=== PATIENT | female | born 1980 | race Caucasian/White ===

== ENCOUNTER 2017-07-06 18:19 | Emergency (ER) | payer MEDICARE, SELFPAY ==
[2017-07-06 18:20] VITALS: BP 155/98; PULSE 99; RESP 16; TEMP 36.4; O2SAT 100; BMI 49.4
--- NOTE | 2017-07-06 18:31 | ED.RN ---
pt telling me that her major problem is chest pain she telling me she is not having right now, had earlier but she fell asleep. describes the pain as drowning and suffocating but denies shortness of breath. pt goes off topic and brings up numbness and tingling in legs, hands, and her eyes are being pulled out of her head.
--- NOTE | 2017-07-06 18:38 | EKG12_ITS ---
Test Reason : SOB Blood Pressure : / mmHG Vent. Rate : 099 BPM Atrial Rate : 099 BPM P-R Int : 144 ms QRS Dur : 074 ms QT Int : 366 ms P-R-T Axes : 072 004 046 degrees QTc Int : 469 ms Normal sinus rhythm Normal ECG Confirmed by ONESIMO ALVAREZ, TORITO ([id number]), editorial writer VINCE MANCUSO ([id number]) on 07/09/2017 1:46:22 PM Referred By: FLORA Confirmed By:TORITO ECHOLS MD
--- NOTE | 2017-07-06 18:38 | CT_ITS ---
STUDY: CT BRAIN WITHOUT CONTRAST REASON FOR EXAM: Female, 37 years old. Dizziness. RADIATION DOSAGE (If Supplied By Facility): CTDIvol = ( 44.99 ) mGy, DLP = ( 812.98 ) mGycm TECHNIQUE: Transaxial CT imaging of the brain was performed without administration of intravenous contrast material. Individualized dose optimization techniques were used for this CT. COMPARISON: None. FINDINGS: Normal soft tissue structures. Normal calvarium. Normal size ventricles and extra-axial spaces for the patient's age. Normal white matter tracts of the cerebral hemispheres. Normal basal ganglia and thalami. Normal brainstem. Normal cerebellum. There is no intracranial hemorrhage. There are no findings of an acute ischemic infarction. There is mild opacification of the maxillary, sphenoid and ethmoid sinuses. CT/Brain/Head without Contrast IMPRESSION: No acute intracranial process. Mild opacification of the maxillary and sphenoid and ethmoid sinuses suggestive of a history of sinusitis. Electronically Signed: Yola Trinh MD at 19:51 EST Tel , Service support ,
--- NOTE | 2017-07-06 18:42 | ED.DCSUM_ITS ---
- ER Visit Summary Date of Service: 07/06/17 Chief Complaint: Chest pain and body pain History of Present Illness: The patient is a 37 F with history of anxiety and bipolar disorder who presents for 6 hours of chest pain and multiple body pain complaints. Patient states she began having sharp severe chest pain, sharp pain in her arms and legs that would alternate with numbness, vision changes that were intermittent, and now feels like someone is trying to pull her right eye out of her head. She took a muscle relaxant and BuSpar and took a nap. When she woke up she came to the emergency department because she was still having symptoms. She denies cough or congestion. She had associated shortness of breath. No fever. Patient states she is currently not taking her medications but cannot tell me when the last time she took them was. Physical Examination: Vital signs: afebrile, hemodynamically stable, no hypoxia on room air General: well nourished, well developed, obese, laying in bed, in no distress Skin: warm, dry, no rash, no pallor no contusions noted HEENT: normocephalic and atraumatic; PERRL, EOMI, moist mucous membranes mild conjunctival injection diffusely Cardiovascular: regular rate and rhythm without murmurs, no peripheral edema, 2 + pulses all distal extremities Respiratory: No increased work of breathing, lungs are clear to auscultation bilaterally, no rales, rhonchi or wheezing Abdominal: Abdomen is soft, nontender with normoactive bowel sounds, no guarding or rebound, no masses MSK: Moves all extremities, no deformities, normal strength, complaint of pain to very light touch all extremities Neuro: Awake and alert, oriented ?4. No facial droop, sensation and motor function intact and symmetric Test Results: Abnormal Lab Results 07/06/17 07/06/17 07/06/17 18:50 18:50 18:50 WBC 9.0 RBC 4.31 Hgb 11.9 L Hct 37.4 MCV 86.8 MCH 27.6 MCHC 31.8 L RDW 14.1 RDW Differential 44.6 H Plt Count 112 L MPV 10.2 Immature Gran % (Auto) 0.300 Neut % (Auto) 60.3 Lymph % (Auto) 30.5 Lipscomb % (Auto) 3.2 Eos % (Auto) 5.3 H Baso % (Auto) 0.4 Absolute Neuts (auto) 5.4 Absolute Lymphs (auto) 2.75 Total Counted Not Reportable Sodium 142 Potassium 3.2 L Chloride 108 H Carbon Dioxide 26.0 Anion Gap 8 BUN 14 Creatinine 0.67 Estim Creat Clear Calc 90.04 Est GFR (MDRD) Af Amer 127 Est GFR (MDRD) Non-Af 105 BUN/Creatinine Ratio 21.0 H Glucose 164 H Calcium 7.8 L Total Bilirubin 0.40 AST 28 ALT 33 Alkaline Phosphatase 103 Total Creatine Kinase Troponin I < 0.02 Total Protein 6.6 Albumin 3.1 L Globulin 3.5 Albumin/Globulin Ratio 0.9 Lipase 138 TSH 0.56 Urine Color Urine Clarity Urine pH Ur Specific Mcdaniel Urine Protein Urine Glucose (UA) Urine Ketones Urine Occult Blood Urine Nitrite Urine Bilirubin Urine Urobilinogen Ur Leukocyte Esterase Urine Test Urine Opiates Screen Urine Methadone Screen Ur Barbiturates Screen Ur Phencyclidine Scrn Ur Amphetamines Screen U Methamphetamin-MDMA U Benzodiazepines Scrn Urine Cocaine Screen U Cannabinoids Screen Ur Drug Screen Comment Ethyl Alcohol 9.0 POC Glucose 07/06/17 07/06/17 07/06/17 18:50 19:10 19:50 WBC RBC Hgb Hct MCV MCH MCHC RDW RDW Differential Plt Count MPV Immature Gran % (Auto) Neut % (Auto) Lymph % (Auto) Lipscomb % (Auto) Eos % (Auto) Baso % (Auto) Absolute Neuts (auto) Absolute Lymphs (auto) Total Counted Sodium Potassium Chloride Carbon Dioxide Anion Gap BUN Creatinine Estim Creat Clear Calc Est GFR (MDRD) Af Amer Est GFR (MDRD) Non-Af BUN/Creatinine Ratio Glucose Calcium Total Bilirubin AST ALT Alkaline Phosphatase Total Creatine Kinase 271 H Troponin I Total Protein Albumin Globulin Albumin/Globulin Ratio Lipase TSH Urine Color Urine Clarity Urine pH Ur Specific Mcdaniel Urine Protein Urine Glucose (UA) Urine Ketones Urine Occult Blood Urine Nitrite Urine Bilirubin Urine Urobilinogen Ur Leukocyte Esterase Urine Test Urine Opiates Screen NEGATIVE Urine Methadone Screen NEGATIVE Ur Barbiturates Screen NEGATIVE Ur Phencyclidine Scrn NEGATIVE Ur Amphetamines Screen POSITIVE H U Methamphetamin-MDMA POSITIVE H U Benzodiazepines Scrn NEGATIVE Urine Cocaine Screen NEGATIVE U Cannabinoids Screen POSITIVE H Ur Drug Screen Comment Ethyl Alcohol POC Glucose 166 H 07/06/17 19:50 WBC RBC Hgb Hct MCV MCH MCHC RDW RDW Differential Plt Count MPV Immature Gran % (Auto) Neut % (Auto) Lymph % (Auto) Lipscomb % (Auto) Eos % (Auto) Baso % (Auto) Absolute Neuts (auto) Absolute Lymphs (auto) Total Counted Sodium Potassium Chloride Carbon Dioxide Anion Gap BUN Creatinine Estim Creat Clear Calc Est GFR (MDRD) Af Amer Est GFR (MDRD) Non-Af BUN/Creatinine Ratio Glucose Calcium Total Bilirubin AST ALT Alkaline Phosphatase Total Creatine Kinase Troponin I Total Protein Albumin Globulin Albumin/Globulin Ratio Lipase TSH Urine Color Yellow Urine Clarity Sl. Cloudy Urine pH 6.0 Ur Specific Mcdaniel 1.025 Urine Protein Negative Urine Glucose (UA) Normal Urine Ketones Negative Urine Occult Blood 10 H Urine Nitrite Negative Urine Bilirubin Negative Urine Urobilinogen Normal Ur Leukocyte Esterase Negative Urine Test Negative Urine Opiates Screen Urine Methadone Screen Ur Barbiturates Screen Ur Phencyclidine Scrn Ur Amphetamines Screen U Methamphetamin-MDMA U Benzodiazepines Scrn Urine Cocaine Screen U Cannabinoids Screen Ur Drug Screen Comment Ethyl Alcohol POC Glucose Emergency Department Course and Treatment: Patient has multiple complaints that do not have a unified obvious etiology. Thus a workup was performed to look for underlying metabolic or neurologic issues. CT the head showed no mass lesions or intracranial hemorrhage. Chest x-ray showed no pneumonia. EKG showed a sinus rhythm without ischemia or ectopy, no prolonged QT interval. Labs showed no leukocytosis. No significant electrolyte derangements on chemistry panel other than very mild hypokalemia. No hepatic derangements. Troponin negative. Because of patient's diffuse muscle tenderness his CK was checked and was within acceptable limits. TSH was within normal limits. Tox screen negative and alcohol was within normal limits. Patient was given Tylenol and IV fluids. On reevaluation she was moving around and interacting with her boyfriend. She was no longer complaining of any pain. She then stated that maybe it was a fibro-flare in the beginning but with her diffuse tenderness to touch all over her body makes sense with the fibromyalgia diagnosis. Patient will follow up with her doctor. She was discharged home in improved condition. Treatment Plan: [] Disposition: [] Impression: generalized pain This note was generated with Relevant e-solutionation software. It may contain incorrect words, spelling, and punctuation that were not noted in review of the chart prior to signing ED Disposition - Plan for ED Patient: Disposition: Home or Assisted Living Chief Complaint: General Illness Instructions: ED Blank Diagnosis Form Referrals: Beto Barahona DO [Primary Care Provider] - Keep [facility] appointment Additional Instructions: A workup was performed for your chest pain and multiple pain points in your extremities. Because you were also having the numbness and vague vision changes , a CT of your head was performed and showed no abnormalities. Your lab work showed no electrolyte imbalance, and no other abnormalities. Your thyroid function was normal. Your given Tylenol and IV fluids. Please follow-up with your doctor as scheduled on . If you have any further concerns, please come back for another evaluation.
[2017-07-06] MEDS: 0.9% Normal Saline 1,000 ML 1000 ML IV (19:03)
[2017-07-06] MEDS: Acetaminophen 500 MG Tablet 1000 MG PO (19:03)
[2017-07-06 19:05] LABS: Absolute Lymphocyte Count 2.75 X10^3/ul (0.83-4.51); Absolute Neutrophil Count 5.4 X10^3/uL (2.0-7.7); Basophil# 0.04 X10^3/uL; Basophil% 0.4 % (0-1); Eosinophil# 0.48 X10^3/uL; Eosinophils% 5.3 % (0-5); Hematocrit 37.4 % (37-47); Hemoglobin 11.9 g/dl (12.0-15.0); Lymphocyte # 2.75 X10^3/ul (4.0); Lymphocyte % 30.5 % (19-41); Mean Corp Hgb Conc 31.8 g/gl (32-36); Mean Corpuscular Hgb 27.6 pg (27.0-32.0); Mean Corpuscular Volume 86.8 fL (81-99); Mean Platelet Vol. 10.2 fl (6.2-12.0); Monocyte# 0.29 X10^3/uL; Monocyte% 3.2 % (0-10); Neutrophil # 5.44 X10^3/uL (2.7-7.7); Neutrophil % 60.3 % (47-70); Platelet Count 112 K/mm3 (150-450); RBC Distribution Width CV 14.1 % (11.6-14.6); RBC Distribution Width SD 44.6 fl (35.1-43.9); Red Blood Count 4.31 M/mm3 (4.2-5.4)
--- NOTE | 2017-07-06 19:14 | ED.RN ---
PT NOT TAKING MEDS. UNABLE TO VERIFY HOME MEDS
[2017-07-06 19:15] LABS: Bedside Glucose 166 mg/dL (70-110)
[2017-07-06 19:18] LABS: POSITIVE COUNT NO; POSITIVE DIFFERENTIAL NO; POSITIVE MORPHOLOGY NO
[2017-07-06 19:25] LABS: CPK Total, Creatine Kinase 271 U/L (26-192)
--- NOTE | 2017-07-06 19:25 | RAD_ITS ---
STUDY: X-RAY CHEST REASON FOR EXAM: Female, 37 years old. Chest pain TECHNIQUE: PA and lateral views of the chest. COMPARISON: August 14, 2015 FINDINGS: The lungs are clear and expanded. There is no demonstrated pleural abnormality. Normal size heart. Normal mediastinum and sd. Normal visualized pulmonary arteries. Normal visualized aortic arch and descending thoracic aorta. Normal visualized thoracic spine. Normal visualized ribs, clavicles, and shoulders. There is no demonstrated abnormality of the visualized soft tissue structures of the upper abdomen. RAD/Chest PA and Lateral IMPRESSION: No acute cardiopulmonary process. Electronically Signed: Yola Trinh MD at 19:54 EST Tel , Service support ,
[2017-07-06 19:34] LABS: ALB/GLOB Ratio 0.9 RATIO (0.9-2.4); AST(SGOT) 28 U/L (15-37); Alanine Aminotransfer ALT/SGPT 33 U/L (13-56); Albumin, Serum 3.1 g/dL (3.2-5.0); Alkaline Phosphatase 103 U/L (45-117); Anion Gap 8 (5-15); BUN 14 mg/dL (7-18); Calcium,Total 7.8 mg/dL (8.5-10.1); Chloride 108 mmol/L (98-107); Creatinine, Serum 0.67 mg/dL (0.55-1.02); EST Glomerular Filtration Rate 105 mL/min (>60); Est Glom Filt Rate - Afr Amer 127 mL/min (>60); Estimated Creatinine Clearance 90.04 ml/min; Globulin 3.5 g/dL (2.2-4.2); Glucose 164 mg/dL (74-106); Lipase 138 U/L (73-393); Potassium 3.2 mmol/L (3.5-5.1); Protein, Total 6.6 g/dL (6.4-8.2); Sodium Level 142 mmol/L (136-145); Thyroid Stim Hormone (TSH) 0.56 uIU/mL (0.358-3.74)
[2017-07-06 20:00] LABS: Color, Urine Yellow (Yellow); Glucose, Dipstick Normal (Normal); Ketone-Dipstick Negative (Negative); Leukocyte Esterase-Dipstick Negative /ul (Negative); Nitrite-Dipstick Negative (Negative); Occult Blood-Urine 10 /ul (Negative); Protein-Dipstick Negative (Negative); Specific Gravity, Urine 1.025 (1.002-1.030); Urine Bilirubin Dipstick Negative (Negative); Urine Clarity Sl. Cloudy (Clear); Urine Urobilinogen Normal (Normal)
[2017-07-06 20:03] LABS: Internal QC Validated? YES +Cl - CLEAR BKGD; Pregnancy, Urine Negative Negative
[2017-07-06 20:07] VITALS: BP 159/101; RESP 18
--- NOTE | 2017-07-06 20:10 | DCINST.ED_ITS ---
ED Disposition - Plan for ED Patient: Disposition: Home or Assisted Living Chief Complaint: General Illness Instructions: ED Blank Diagnosis Form Referrals: Beto Barahona DO [Primary Care Provider] - Keep [facility] appointment Additional Instructions: A workup was performed for your chest pain and multiple pain points in your extremities. Because you were also having the numbness and vague vision changes , a CT of your head was performed and showed no abnormalities. Your lab work showed no electrolyte imbalance, and no other abnormalities. Your thyroid function was normal. Your given Tylenol and IV fluids. Please follow-up with your doctor as scheduled on . If you have any further concerns, please come back for another evaluation.
[2017-07-06 20:25] LABS: Amphetamine Urine VISTA POSITIVE (<1000 ng/mL); Barbiturate Urine VISTA NEGATIVE (< 200 ng/mL); Benzodiazepine Urine VISTA NEGATIVE (< 200 ng/mL); Cocaine Urine VISTA NEGATIVE (< 300 ng/mL); Ecstacy Urine VISTA POSITIVE (< 500 ng/mL); Methadone Urine VISTA NEGATIVE (< 300 ng/mL); PCP Urine VISTA NEGATIVE (< 25 ng/mL); THC Urine VISTA POSITIVE (< 50 ng/mL); Vista UDS pH Range 5
== END 2017-07-06 20:22 | disposition home or self-care (01) ==
PROVIDERS: Emergency Provider Emergency Medicine; Family Provider Student in an Organized Health Care Education/Training Program; PCP Student in an Organized Health Care Education/Training Program
DX: R07.9 Chest pain, unspecified (principal); R52 Pain, unspecified; E87.6 Hypokalemia; E66.9 Obesity, unspecified; F41.9 Anxiety disorder, unspecified; F31.9 Bipolar disorder, unspecified; Z79.899 Other long term (current) drug therapy
CPT/HCPCS: 70450; 71046; 80053; 80307; 80320; 81002; 81025; 82550; 82962; 83690; 84443; 84484; 85025; 93005; 96360; 99284; J7030; A4216; G0480

== ENCOUNTER 2017-08-30 15:34 | Emergency (ER) | payer MEDICARE, SELFPAY ==
[2017-08-30 15:40] VITALS: BP 165/116; PULSE 128; RESP 20; TEMP 36.9; O2SAT 94; BMI 40.2
--- NOTE | 2017-08-30 15:48 | ED.RN ---
0501-Pocket knife sent to security with patient label. Patient refusing to give up other belongings, including multiple lighters, at this time. Lighters handed to piano case maker who is sitting next to patient. Primary RN and ED physician Dr. Hatfield at bedside at this time.
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
[2017-08-30] MEDS: LORazepam 1 MG Tablet PO (16:23)
[2017-08-30 16:27] LABS: Absolute Lymphocyte Count 3.77 X10^3/ul (0.83-4.51); Absolute Neutrophil Count 8.4 X10^3/uL (2.0-7.7); Basophil# 0.07 X10^3/uL; Basophil% 0.5 % (0-1); Eosinophil# 0.63 X10^3/uL; Eosinophils% 4.6 % (0-5); Hematocrit 42.3 % (37-47); Lymphocyte # 3.77 X10^3/ul (4.0); Lymphocyte % 27.4 % (19-41); Mean Corp Hgb Conc 33.1 g/gl (32-36); Mean Corpuscular Hgb 28.2 pg (27.0-32.0); Mean Corpuscular Volume 85.3 fL (81-99); Mean Platelet Vol. 10.3 fl (6.2-12.0); Monocyte% 5.8 % (0-10); Neutrophil # 8.38 X10^3/uL (2.7-7.7); Platelet Count 175 K/mm3 (150-450); RBC Distribution Width CV 13.8 % (11.6-14.6); RBC Distribution Width SD 42.3 fl (35.1-43.9); Red Blood Count 4.96 M/mm3 (4.2-5.4); White Blood Count 13.7 K/mm3 (4.4-11.0)
[2017-08-30 16:28] LABS: POSITIVE COUNT NO; POSITIVE DIFFERENTIAL NO; POSITIVE MORPHOLOGY NO
[2017-08-30 16:39] LABS: Anion Gap 7 (5-15); BUN 19 mg/dL (7-18); Calcium,Total 8.9 mg/dL (8.5-10.1); Chloride 103 mmol/L (98-107); Creatinine, Serum 0.76 mg/dL (0.55-1.02); EST Glomerular Filtration Rate 91 mL/min (>60); Est Glom Filt Rate - Afr Amer 110 mL/min (>60); Estimated Creatinine Clearance 79.38 ml/min; Glucose 173 mg/dL (74-106); Potassium 3.8 mmol/L (3.5-5.1); Sodium Level 138 mmol/L (136-145)
[2017-08-30 16:45] LABS: Amphetamine Urine VISTA POSITIVE (<1000 ng/mL); Barbiturate Urine VISTA NEGATIVE (< 200 ng/mL); Benzodiazepine Urine VISTA NEGATIVE (< 200 ng/mL); Cocaine Urine VISTA NEGATIVE (< 300 ng/mL); Ecstacy Urine VISTA POSITIVE (< 500 ng/mL); Methadone Urine VISTA NEGATIVE (< 300 ng/mL); PCP Urine VISTA NEGATIVE (< 25 ng/mL); THC Urine VISTA NEGATIVE (< 50 ng/mL); Vista UDS pH Range 6
[2017-08-30 16:54] LABS: Pregnancy, Serum, hCG Quali. NEGATIVE Negative (0-9 Nonpreg)
[2017-08-30 17:05] LABS: Alcohol, Blood (Medical)-Serum < 3.0 mg/dL
--- NOTE | 2017-08-30 17:14 | ED.RN ---
PER KIERA WITH CRISIS; BINU WILL BE IN TO EVALUATE THE PT. SHE IS ON HER WAY BACK FROM [facility]
[2017-08-30 18:21] VITALS: BP 152/94; PULSE 106; RESP 18; O2SAT 99
[2017-08-30] MEDS: Ibuprofen 600 MG Tablet PO (21:10)
[2017-08-30 21:11] VITALS: BP 150/97; PULSE 100; RESP 20; O2SAT 97
[2017-08-31 00:08] VITALS: BP 147/83; PULSE 91; RESP 20; O2SAT 96
== END 2017-08-31 00:09 | disposition home or self-care (01) ==
PROVIDERS: Emergency Provider Emergency Medicine; Family Provider Student in an Organized Health Care Education/Training Program; PCP Student in an Organized Health Care Education/Training Program
DX: F30.9 Manic episode, unspecified (principal); F60.0 Paranoid personality disorder; Z72.0 Tobacco use; Z79.51 Long term (current) use of inhaled steroids; Z79.84 Long term (current) use of oral hypoglycemic drugs; Z79.899 Other long term (current) drug therapy
CPT/HCPCS: 80048; 80307; 80320; 84703; 85025; 99285; G0480

== ENCOUNTER 2018-08-23 15:45 | Emergency (ER) | payer MEDICARE, SELFPAY ==
[2018-08-23 15:45] VITALS: BMI 49.4
[2018-08-23 15:46] VITALS: BP 181/117; PULSE 82; RESP 18; TEMP 36.6; O2SAT 95; BMI 44.9
--- NOTE | 2018-08-23 16:05 | ED.VISSUMM ---
- ER Visit Summary Date of Service: 08/23/18 Chief Complaint: Tooth pain History of Present Illness: The patient is a 38 F who has pain in the right side of her mouth. It started earlier today. She is a previous meth user and she knows that she has bad teeth. It is worse with chewing. She did not notice any of her teeth broke off today. She took ibuprofen at about 1:45 PM Physical Examination: Vital signs reviewed. She has tenderness to tooth percussion on the right hand side diffusely. She has widespread dental decay with multiple broken teeth. Test Results: None performed Emergency Department Course and Treatment: Patient will be treated with clindamycin, naproxen and Diflucan. She will follow-up with her dentist Treatment Plan: [] Disposition: Discharge Impression: Odontalgia This note was generated with [employer] dictation software. It may contain incorrect words, spelling, and punctuation that were not noted in review of the chart prior to signing ED Disposition - Plan for ED Patient: Referrals: Beto Barahona DO [Primary Care Provider] -
--- NOTE | 2018-08-23 16:08 | ED.DEP ---
ED Disposition - Plan for ED Patient: Disposition: Home or Assisted Living Instructions: ED Tooth Pain Prescriptions: Fluconazole [Diflucan] 150 mg PO PRN PRN #1 tab PRN Reason: yeast vaginitis Naproxen [Naprosyn] 500 mg PO BID PRN #20 tab Clindamycin [Cleocin] 300 mg PO TID #42 cap Referrals: Beto Barahona DO [Primary Care Provider] -
== END 2018-08-23 16:17 | disposition home or self-care (01) ==
LOC: ED 16:16
PROVIDERS: Emergency Provider Emergency Medicine; Family Provider Student in an Organized Health Care Education/Training Program; PCP Student in an Organized Health Care Education/Training Program
DX: K08.89 Other specified disorders of teeth and supporting structures (principal); M79.7 Fibromyalgia; Z72.0 Tobacco use
CPT/HCPCS: 99282

== ENCOUNTER 2020-06-08 22:38 | Emergency (ER) | payer MEDICARE, MEDICAID, SELFPAY ==
[2020-06-08 22:38] VITALS: BP 162/111; PULSE 121; RESP 18; TEMP 36.9; O2SAT 96; BMI 43.9
--- NOTE | 2020-06-08 23:04 | ED.DCSUM_ITS ---
History of Present Illness Chief Complaint: Abscess Informant: Patient Onset: Days - 4-5 Context: Gradual Onset Timing: Continuous Quality: sore Location: mult locations -- see below Current Severity: Moderate Maximum Severity: Moderate Worsened by: sitting Relieved by: nothing Associated Symptoms: chills, feeling poorly Narrative: Patient states she has had small boils off and on since she was a teenager. Never been diagnosed with hidradenitis suppurativa, but they often occur in intertriginous areas. She currently has several. She has 1 on her left labia majora, one on her right buttock near her perineum, one on her left medial thigh close to her labia but extending more distally toward the knee, one on her right proximal thigh anteriorly near her groin, and one beneath her left breast that burst and drained a scant amount of fluid and is improving which is what the majority of her small abscesses have done for the last couple decades. She has never needed one drained, and the one on her left medial thigh is the most painful and largest and she fears may be drainable. She has been having chills and feeling poorly but no fevers that she knows of, no other major systemic symptoms she has been getting around fine and not feeling very ill. She is a prediabetic, not a diabetic. - Past Medical History (1) Prediabetes Status: Chronic (2) Bipolar 1 disorder Status: Chronic (3) Fibromyalgia Status: Chronic (4) IBS (irritable bowel syndrome) Status: Chronic Past Medical History - Allergies and Home Meds Allergies/Adverse Reactions: Allergies red (food color) Allergy (Verified 06/08/20 22:41) Other MIGRAINES sulfamethoxazole [From Septra] Allergy (Verified 06/08/20 22:41) Rash trimethoprim [From Septra] Allergy (Verified 06/08/20 22:41) Rash amoxicillin [Amoxicillin] Adverse Reaction (Verified 06/08/20 22:41) Nausea/Vom/Diarrhea amoxicillin trihydrate [From Augmentin] Adverse Reaction (Verified 06/08/20 22:41) Nausea/Vom/Diarrhea potassium clavulanate [From Augmentin] Adverse Reaction (Verified 06/08/20 22:41) Nausea/Vom/Diarrhea Primary Care Physician: Beto Barahona DO [Primary Care Provider] - Surgical History: cholecystectomy, hysterectomy Smoking Status: Current every day smoker Review of Systems General: Reports: Chills, Malaise. Denies: Fever, Sweats Eyes: Denies: Visual changes - bilaterally, Diplopia ENT: Denies: Rhinorrhea, Sore throat Cardiovascular: Denies: Chest pain, Palpitations Respiratory: Denies: Dyspnea, Cough, Dyspnea on exertion Gastrointestinal: Denies: Abdominal pain, Nausea, Vomiting, Diarrhea, Melena, Hematochezia Genitourinary: Denies: Dysuria, Hematuria, Frequency Musculoskeletal: Reports: Extremity Pain - at abscess locations. Denies: Back pain Skin: Reports: Abscess. Denies: Rash, Wounds Neurological: Denies: Headache, Weakness, Numbness Physical Exam Vital Signs/Narrative: Vital Signs Temp Pulse Resp BP Pulse Ox 06/08/20 22:38 98.4 F 121 H 18 162/111 H 96 Inital Vital Signs reviewed: Yes General: Well nourished, Well developed, Obese, No Acute Distress - well- appearing, nad Head: Normocephalic, Atraumatic Eyes: Perrl, EOMI ENT: Moist mucous membranes, No rhinorrhea Neck: Supple, Nontender Cardiovascular: Regular rate, Regular rhythm. Negative for: Tachycardia Respiratory: No distress, CTA bilaterally Abdomen: Soft, Nontender, Nondistended, Normal bowel sounds Back: Nontender, Normal Inspection Extremities: No edema, Tenderness - at abscess locations bilat thighs Skin: No Trauma, Rash - Several small abscesses. The one on her left labia majora is not palpable or visible to me. The one on her right anterior thigh is subcentimeter and very small without spontaneous drainage. The one on her right buttock/perineum is also very small. , - - The abscess on her left medial thigh is about 4 cm in diameter, pointing, indurated, with cellulitis spreading approximately 10 cm distally toward the knee and the thigh which is also tender but not indurated. No spontaneous drainage expressible. Neurological: Alert, Oriented x3, Cranial nerves II-XII grossly intact, Normal Strength, Normal Sensation, Normal Gait Psychological: Normal affect, Normal Mood Diagnostic/Tx/Re-eval Laboratory Tests 06/08/20 Range/Units 23:11 WBC 9.3 (4.4-11.0) K/mm3 RBC 4.96 (4.2-5.4) M/mm3 Hgb 14.0 (12.0-15.0) g/dL Hct 42.4 (37-47) % MCV 85.5 (81-99) fL MCH 28.2 (27.0-32.0) pg MCHC 33.0 (32-36) g/dL RDW Std Deviation 43.0 (35.1-43.9) fl RDW Coeff of Jatinder 13.9 (11.6-14.6) % Plt Count 155 (150-450) K/mm3 MPV 10.7 (6.2-12.0) fl Immature Gran % (Auto) 1.800 H (0.0-0.9) % Neut % (Auto) 60.8 (47-70) % Lymph % (Auto) 26.9 (19-41) % Jennings % (Auto) 5.6 (0-10) % Eos % (Auto) 4.3 (0-5) % Baso % (Auto) 0.6 (0-1) % Absolute Neuts (auto) 5.7 (2.0-7.7) X10^3/uL Absolute Lymphs (auto) 2.50 (0.83-4.51) X10^3/uL Nucleated RBC % 0 (0-5) % - Medical Decision Making Given that the patient has allergy to the first choice empiric antibiotic therapy, Bactrim, and was having some chills with this extensive cellulitis around this abscess, CBC and blood cultures were obtained prior to starting vancomycin. Her white blood count is normal, which is reassuring and makes it less likely that her blood cultures will be positive. Abscess was drained, packed, she was given instructions for removal of the packing, and she will be placed on clindamycin which she has had before and tolerates. She is already taking a probiotic which will help prevent antibiotic associated diarrhea. All questions answered at bedside and discharged stable condition for outpatient follow-up as needed. Procedures Procedure(s): Incision and drainage abscess left medial thigh, complex --after sterile prep and drape with chlorhexidine, and local anesthesia 6 cc plain 1% lidocaine, the abscess was opened with a #10 blade, and the abscess was probed and deloculated with Kellys since due to the patient's obesity the capsule surface was deep. A smaller than expected amount of purulent discharge was expressed. The cavity was irrigated with 60 cc of sterile saline, and packed with strip gauze quarter inch. Dressed with bacitracin. No complications, tolerated well. ED Disposition - Plan for ED Patient: Disposition: Home or Assisted Living Diagnosis: Cutaneous abscess of extremity Instructions: ED Abscess Incision And Drainage Prescriptions: Clindamycin [Cleocin] 300 mg PO 4X/DAY #80 cap Prescription Printed Referrals: Beto Barahona DO [Primary Care Provider] - 3-5 Days if not improving Additional Instructions: If in approximately 48 hours the redness is retracting from where we christin a purple line at the edge of it, remove the packing, discarded, and continue placing gauze over the open wound with antibiotic ointment until there is no more leakage/drainage from the wound. Continue the antibiotics as prescribed until completely finished. Continue taking probiotic daily especially while on the antibiotic.
[2020-06-08 23:29] LABS: Absolute Neutrophil Count 5.7 X10^3/uL (2.0-7.7); Basophil# 0.06 X10^3/uL; Basophil% 0.6 % (0-1); Eosinophils% 4.3 % (0-5); Hematocrit 42.4 % (37-47); Lymphocyte % 26.9 % (19-41); Mean Corpuscular Hgb 28.2 pg (27.0-32.0); Mean Corpuscular Volume 85.5 fL (81-99); Mean Platelet Vol. 10.7 fl (6.2-12.0); Monocyte# 0.52 X10^3/uL; Monocyte% 5.6 % (0-10); NRBC Flagged by Analyzer 0 % (0-5); Neutrophil # 5.65 X10^3/uL (2.7-7.7); Neutrophil % 60.8 % (47-70); Platelet Count 155 K/mm3 (150-450); RBC Distribution Width CV 13.9 % (11.6-14.6); Red Blood Count 4.96 M/mm3 (4.2-5.4); White Blood Count 9.3 K/mm3 (4.4-11.0)
[2020-06-08 23:37] VITALS: BP 142/91; PULSE 109; RESP 16; O2SAT 97
[2020-06-09] MEDS: Lidocaine 1% (20 ml mdv) 20 ML Vial INFILT (01:44)
[2020-06-09 02:16] VITALS: BP 144/98; PULSE 109; RESP 16; O2SAT 97
== END 2020-06-09 02:17 | disposition home or self-care (01) ==
PROVIDERS: Emergency Provider Emergency Medicine; PCP Student in an Organized Health Care Education/Training Program
DX: L02.416 Cutaneous abscess of left lower limb (principal); F31.9 Bipolar disorder, unspecified; M79.7 Fibromyalgia; R73.03 Prediabetes; E66.9 Obesity, unspecified; F17.200 Nicotine dependence, unspecified, uncomplicated; Z79.899 Other long term (current) drug therapy; Z79.84 Long term (current) use of oral hypoglycemic drugs
CPT/HCPCS: 10060; 36415; 85025; 87040; 96365; 96366; 99284; J7040; J7050; A4216

== ENCOUNTER 2020-06-26 09:36 | Emergency (ER) | payer MEDICARE, MEDICAID, SELFPAY ==
[2020-06-26 09:36] VITALS: BP 204/130; PULSE 125; RESP 18; TEMP 36.6; O2SAT 100; BMI 48.4
[2020-06-26 09:46] VITALS: BP 204/130; PULSE 125; RESP 18; TEMP 36.6; O2SAT 100
--- NOTE | 2020-06-26 09:54 | CT_ITS ---
STUDY: CT ABDOMEN AND PELVIS WITH CONTRAST REASON FOR EXAM: Female, 40 years old. ABD PAIN, VAG BLEEDING SINCE 2018, DIARRHEA, ABSCESSES RADIATION DOSAGE (If Supplied By Facility): CTDIvol = ( 21.925 ) mGy, DLP = ( 1829.92 ) mGycm TECHNIQUE: Transaxial images were obtained from the dome of the diaphragm to the symphysis pubis without oral contrast. was administered. Sagittal and coronal images were reconstructed. Individualized dose optimization techniques were used for this CT. COMPARISON: Comparison is made with prior study dated 08/12/2015. FINDINGS: The visualized lung bases are unremarkable. The visualized portions of the heart are within normal limits. There is decreased attenuation of the liver consistent with steatosis. Hepatomegaly. There are surgical clips in the gallbladder fossa consistent with a prior cholecystectomy. Normal spleen. Normal pancreas. Normal bilateral adrenal glands. Normal right kidney. Normal left kidney. Normal visualized stomach. Normal small intestine. There are scattered colonic diverticula consistent with diverticulosis. The appendix is visualized and appears normal. Normal abdominal aorta. Normal inferior vena cava. Normal retroperitoneum. Normal urinary bladder. There is absence of the uterus consistent with a prior hysterectomy. Normal abdominal wall. Normal osseous structures. CT/Abdomen/Pelvis W IV Cont ONLY IMPRESSION: Hepatomegaly and diffuse fatty infiltration of the liver. Electronically Signed: Mark Hilliard MD at 11:50 EST , Service support ,
--- NOTE | 2020-06-26 09:57 | ED.VIS.GEN ---
History of Present Illness Chief Complaint: Vag Bleeding Informant: Patient Narrative: 40-year-old female presenting with multiple complaints. Initially she stated she had some skin irritation on her arms, legs, trunk which has been present for years. She states that they sometimes assess and rupture on their own. Patient was seen earlier this month and had one abscess that needed to be opened. She was placed on clindamycin. She is currently taking this. She states that that abscess was improving and now she notices a rash all over. Patient also states that this morning she started to have vaginal bleeding and she also complains of rectal cramping. Patient has not had fever, chills, nausea, vomiting. Patient does state that she is trying to make an appointment with her primary care physician however due to difficulty getting an appointment she came to the emergency room. Patient states that she has had issue of blood in her stool in the past. She has not made follow-up with a GI doctor for this. She has not contacted her GM for her vaginal bleeding. - Past Medical History (1) Prediabetes Status: Chronic (2) Bipolar 1 disorder Status: Chronic (3) Fibromyalgia Status: Chronic (4) IBS (irritable bowel syndrome) Status: Chronic (5) Esophageal reflux Status: Chronic Past Medical History - Allergies and Home Meds Allergies/Adverse Reactions: Allergies red (food color) Allergy (Verified 06/26/20 09:39) Other MIGRAINES sulfamethoxazole [From Septra] Allergy (Verified 06/26/20 09:39) Rash trimethoprim [From Septra] Allergy (Verified 06/26/20 09:39) Rash amoxicillin [Amoxicillin] Adverse Reaction (Verified 06/26/20 09:39) Nausea/Vom/Diarrhea amoxicillin trihydrate [From Augmentin] Adverse Reaction (Verified 06/26/20 09:39) Nausea/Vom/Diarrhea potassium clavulanate [From Augmentin] Adverse Reaction (Verified 06/26/20 09:39) Nausea/Vom/Diarrhea Primary Care Physician: Beto Barahona DO [Primary Care Provider] - Calvin Gu MD [STAFF PHYSICIAN] - Sherron Luna DO [STAFF PHYSICIAN] - Prior records reviewed: Yes Past Medical History: - - Reviewed in problem list Surgical History: cholecystectomy, hysterectomy Lives: Friends, Homeless Smoking Status: Current every day smoker Alcohol: None Drugs: None Review of Systems General: Reports: Malaise. Denies: Chills, Fever Eyes: Denies: Visual changes - bilaterally, Diplopia ENT: Denies: Rhinorrhea, Sore throat Cardiovascular: Denies: Chest pain, Palpitations Respiratory: Denies: Dyspnea, Cough, Dyspnea on exertion Gastrointestinal: Reports: Diarrhea, - - Rectal cramping. Denies: Nausea, Vomiting Genitourinary: Reports: - - Vaginal dryness. Denies: Dysuria, Hematuria Musculoskeletal: Denies: Myalgias, Arthralgias Skin: Reports: Rash, Abscess Neurological: Denies: Headache, Weakness Psych: Reports: Anxiety. Denies: Suicidal thoughts, Suicidal ideations Physical Exam Vital Signs/Narrative: Vital Signs Temp Pulse Resp BP Pulse Ox 06/26/20 09:46 97.9 F 125 H 18 204/130 H 100 06/26/20 09:36 97.9 F 125 H 18 204/130 H 100 General: Obese, No Acute Distress Head: Normocephalic, Atraumatic Eyes: Perrl, EOMI, - - Mild erythema at the inferior aspect of the lower eyelid. No fluctuance, crepitance, increased warmth. Negative for: Scleral icterus ENT: Moist mucous membranes, Sinus tenderness Cardiovascular: Regular rate, Regular rhythm Respiratory: No distress, CTA bilaterally Abdomen: Soft, Nontender, Nondistended : - - External vaginal appear normal. Nontender to palpation. Speculum exam shows no abrahan discharge or bleeding. There is no lesions noted. Extremities: Nontender, No edema Skin: - - Bilateral well-healing abscesses the bilateral gluteal folds. Nonspecific macular rash in the upper chest wall. Neurological: Alert, Oriented x3, Cranial nerves II-XII grossly intact Psychological: Normal affect, Normal Mood Diagnostic/Tx/Re-eval Laboratory Data 06/26/20 06/26/20 06/26/20 10:10 10:20 10:35 WBC 8.8 RBC 5.13 Hgb 14.5 Hct 44.1 MCV 86.0 MCH 28.3 MCHC 32.9 RDW Std Deviation 42.1 RDW Coeff of Jatinder 13.4 Plt Count 151 MPV 10.2 Immature Gran % (Auto) 0.800 Neut % (Auto) 51.1 Lymph % (Auto) 36.2 [place] % (Auto) 7.1 Eos % (Auto) 4.0 Baso % (Auto) 0.8 Absolute Neuts (auto) 4.5 Absolute Lymphs (auto) 3.18 Nucleated RBC % 0 Sodium 134 L Potassium 3.2 L Chloride 98 Carbon Dioxide 25.0 Anion Gap 11 BUN 9 Creatinine 0.95 Estim Creat Clear Calc 61.64 Est GFR (MDRD) Af Amer 83 Est GFR (MDRD) Non-Af 69 BUN/Creatinine Ratio 9.4 L Glucose 381 H Calcium 9.2 Urine Color Yellow Urine Clarity Sl. Cloudy Urine pH 5.0 Ur Specific [place] 1.015 Urine Protein 15 H Urine Glucose (UA) 1000 H Urine Ketones 5 H Urine Occult Blood 25 H Urine Nitrite Negative Urine Bilirubin Negative Urine Urobilinogen Normal Ur Leukocyte Esterase Negative - Medical Decision Making Patient presents with multiple complaints. The rash that she points to is fairly nonspecific. She has some old abscesses on her gluteal region which appear to be drained. Did not look erythematous. Not tender to palpation. Patient had concern she had vaginal bleeding this morning. Her pelvic exam is normal. There is no blood in the posterior fornix. There is been no bleeding since that time. Patient believes that one of her abscesses might of bled and that might of caused the blood. Patient's lab work is all within normal limits. Patient had CT abdomen pelvis which showed no acute abnormalities. Given that her hemoglobin is stable and she has no leukocytosis I do not believe she needs antibiotics for blood. Patient was counseled that she needs to follow-up with a environmental engineer scientist for her vaginal bleeding, a shoveler for her chronic rash, GI doctor for what she thought might be blood in her stool. She states that she had a colonoscopy distantly and I did not find anything. Patient also has some complaint of right eye erythema on my reevaluation. It looks minimally erythematous. She requests eyedrops for this and this was provided. Patient also requests fluconazole in case she develops a yeast infection because she is on an antibiotic. These were provided. I believe the patient is stable to follow-up on an outpatient basis. Impression: 1. Concern for vaginal bleeding not found. 2. Dermatitis ED Disposition - Plan for ED Patient: Disposition: Home or Assisted Living Instructions: Understanding Red Eye: Causes, ED Atopic Dermatitis (Adult), ED [facility] Prescriptions: Ketorolac Tromethamine [Acular] 1 drp OP Q8H PRN PRN #1 drops PRN Reason: Eye Irritation Prescription Printed Fluconazole [Diflucan] 150 mg PO X1 #1 tab Prescription Printed Moxifloxacin Ophthalmic [Vigamox Ophth] 3 ml OP Q8 #1 drops Prescription Printed Referrals: Beto Barahona DO [Primary Care Provider] - Calvin Gu MD [STAFF PHYSICIAN] - Sherron Luna DO [STAFF PHYSICIAN] -
[2020-06-26] MEDS: 0.9% Normal Saline 1,000 ML 1000 ML IV (10:14)
[2020-06-26 10:37] LABS: Anion Gap 11 (5-15); BUN 9 mg/dL (7-18); BUN/Creat Ratio 9.4 RATIO (10-20); Calcium,Total 9.2 mg/dL (8.5-10.1); Chloride 98 mmol/L (98-107); Creatinine, Serum 0.95 mg/dL (0.55-1.02); EST Glomerular Filtration Rate 69 mL/min (>60); Est Glom Filt Rate - Afr Amer 83 mL/min (>60); Estimated Creatinine Clearance 61.64 ml/min; Glucose 381 mg/dL (74-106); Potassium 3.2 mmol/L (3.5-5.1); Sodium Level 134 mmol/L (136-145)
[2020-06-26 10:37] LABS: Absolute Lymphocyte Count 3.18 X10^3/uL (0.83-4.51); Absolute Neutrophil Count 4.5 X10^3/uL (2.0-7.7); Basophil# 0.07 X10^3/uL; Basophil% 0.8 % (0-1); Eosinophil# 0.35 X10^3/uL; Hematocrit 44.1 % (37-47); Hemoglobin 14.5 g/dL (12.0-15.0); Lymphocyte # 3.18 X10^3/ul (4.0); Lymphocyte % 36.2 % (19-41); Mean Corp Hgb Conc 32.9 g/dL (32-36); Mean Corpuscular Hgb 28.3 pg (27.0-32.0); Mean Platelet Vol. 10.2 fl (6.2-12.0); Monocyte# 0.62 X10^3/uL; Monocyte% 7.1 % (0-10); NRBC Flagged by Analyzer 0 % (0-5); Neutrophil % 51.1 % (47-70); Platelet Count 151 K/mm3 (150-450); RBC Distribution Width CV 13.4 % (11.6-14.6); RBC Distribution Width SD 42.1 fl (35.1-43.9); Red Blood Count 5.13 M/mm3 (4.2-5.4); White Blood Count 8.8 K/mm3 (4.4-11.0)
[2020-06-26 10:50] LABS: Color, Urine Yellow (Yellow); Glucose, Dipstick 1000 mg/dl (Normal); Ketone-Dipstick 5 mg/dl (Negative); Leukocyte Esterase-Dipstick Negative /ul (Negative); Nitrite-Dipstick Negative (Negative); Occult Blood-Urine 25 /ul (Negative); Protein-Dipstick 15 mg/dl (Negative); Specific Gravity, Urine 1.015 (1.002-1.030); Urine Bilirubin Dipstick Negative (Negative); Urine Clarity Sl. Cloudy (Clear); Urine Urobilinogen Normal (Normal)
[2020-06-26 11:40] VITALS: BP 149/98; PULSE 109; RESP 16; TEMP 36.9; O2SAT 98
[2020-06-26 11:43] VITALS: BP 149/98; PULSE 109; RESP 16; TEMP 36.9; O2SAT 98
[2020-06-26 12:28] VITALS: BP 149/98; PULSE 109; RESP 16; TEMP 36.9; O2SAT 98
== END 2020-06-26 12:29 | disposition home or self-care (01) ==
PROVIDERS: Emergency Provider Student in an Organized Health Care Education/Training Program; PCP Student in an Organized Health Care Education/Training Program
DX: L30.9 Dermatitis, unspecified (principal); K21.9 Gastro-esophageal reflux disease without esophagitis; M79.7 Fibromyalgia; F17.200 Nicotine dependence, unspecified, uncomplicated; E66.9 Obesity, unspecified
CPT/HCPCS: 74177; 80048; 81002; 85025; 96360; 96361; 99283; J7030; Q9967; A4216

== ENCOUNTER 2020-10-16 22:08 | Emergency (ER) | payer MEDICARE, MEDICAID, SELFPAY ==
[2020-10-16 22:08] VITALS: BP 160/110; PULSE 105; RESP 20; TEMP 36.1; O2SAT 97; BMI 44.6
[2020-10-16 22:51] LABS: Absolute Lymphocyte Count 2.68 X10^3/uL (0.83-4.51); Absolute Neutrophil Count 3.3 X10^3/uL (2.0-7.7); Basophil# 0.07 X10^3/uL; Eosinophil# 0.32 X10^3/uL; Eosinophils% 4.6 % (0-5); Hematocrit 37.7 % (37-47); Hemoglobin 12.4 g/dL (12.0-15.0); Lymphocyte # 2.68 X10^3/ul (0.83-4.51); Lymphocyte % 38.9 % (19-41); Mean Corp Hgb Conc 32.9 g/dL (32-36); Mean Corpuscular Hgb 28.2 pg (27.0-32.0); Mean Corpuscular Volume 85.9 fL (81-99); Monocyte# 0.42 X10^3/uL; Monocyte% 6.1 % (0-10); NRBC Flagged by Analyzer 0 % (0-5); Neutrophil # 3.34 X10^3/uL (2.7-7.7); Neutrophil % 48.5 % (47-70); Platelet Count 150 K/mm3 (150-450); RBC Distribution Width CV 12.6 % (11.6-14.6); RBC Distribution Width SD 39.4 fl (35.1-43.9); Red Blood Count 4.39 M/mm3 (4.2-5.4); White Blood Count 6.9 K/mm3 (4.4-11.0)
[2020-10-16 23:10] LABS: Anion Gap 7 (5-15); BUN 11 mg/dL (7-18); BUN/Creat Ratio 14.1 RATIO (10-20); Calcium,Total 8.4 mg/dL (8.5-10.1); Chloride 107 mmol/L (98-107); Creatinine, Serum 0.78 mg/dL (0.55-1.02); EST Glomerular Filtration Rate 86 mL/min (>60); Est Glom Filt Rate - Afr Amer 105 mL/min (>60); Estimated Creatinine Clearance 75.07 ml/min; Glucose 292 mg/dL (74-106); Potassium 3.4 mmol/L (3.5-5.1); Sodium Level 139 mmol/L (136-145)
--- NOTE | 2020-10-16 23:54 | EDS_ITS ---
HPI History of Present Illness Chief Complaint: Cellulitis Narrative Narrative: Patient presenting for evaluation secondary to concern for cellulitis. Patient has a underlying history of bipolar, fibromyalgia, as well as intermittent opiate abuse via snorting. She denies any history of IV drugs. Patient states that about 2 weeks ago she developed a pustule on her left long digit on the ulnar side of the middle phalanx. She states that that progressed to an abscess that spontaneously ruptured and now is in the process of healing. Patient states that over the course of the last couple of days however she has had a similar presentation on her right thumb. This was not associated with any sort of injury to the area, it started as a small pustule and now it is associated with what appears to be an abscess. Patient denies that she has been having constitutional symptoms such as fever. Patient again denies any injection drugs, recent injections or surgeries. She does state that she intermittently will have issues with abscesses around her body, and has had incisions and drainage in the past. She denies any immunosuppression, or that she is taking any immunosuppressive drugs currently. She denies any chest pain or shortness of breath. She denies any unintended weight changes or changes in appetite. Review of systems otherwise negative. Patient does state that she relapsed about a week prior to her presentation of her long digit abscess. [facility] Medical History Anxiety Bipolar disorder Depression Diabetes Fibromyalgia GERD (gastroesophageal reflux disease) Home Medications Omeprazole [Prilosec] 40 mg PO DAILY 12/14/13 [History Last Taken 01/09/15 0500] albuterol sulfate [Ventolin HFA] 2 puff INHALATION Q4H PRN PRN 12/14/13 [History Last Taken Unknown] metformin 500 mg PO DAILY 12/14/13 [History Last Taken Unknown] tizanidine [Zanaflex] 8 mg PO QHS 12/14/13 [History Last Taken Unknown] buspirone 15 mg PO TID 07/03/14 [History Last Taken 07/17/14 07:45] tfrkxqengb-bvsndtxrzkykx-npiz 1 tab PO Q4H PRN PRN 01/02/15 [History Last Taken Unknown] gabapentin 600 mg PO TIDCM 01/02/15 [History Last Taken Unknown] aripiprazole 5 mg PO DAILY 02/12/16 [History Last Taken Unknown] clonazepam 1 mg PO DAILY PRN PRN 07/06/17 [History Last Taken Unknown] fluconazole 150 mg PO PRN PRN #1 tab 08/23/18 [Rx Last Taken Unknown] paroxetine HCl 40 mg PO DAILY 06/08/20 [History Last Taken Unknown] moxifloxacin 3 ml OP Q8 #1 drops 06/26/20 [Rx Last Taken Unknown] doxycycline hyclate 100 mg PO BID #20 cap 10/17/20 [Rx Last Taken Unknown] mupirocin 1 applic TOPICAL BID #15 g 10/17/20 [Rx Last Taken Unknown] Allergy/AdvReac Type Severity Reaction Status Date / Time red (food color) Allergy Other Verified 10/16/20 22:10 sulfamethoxazole Allergy Rash Verified 10/16/20 22:10 [From ] trimethoprim [From ] Allergy Rash Verified 10/16/20 22:10 amoxicillin [Amoxicillin] AdvReac Nausea/Vom/ Verified 10/16/20 22:10 Diarrhea amoxicillin trihydrate AdvReac Nausea/Vom/ Verified 10/16/20 22:10 [From Augmentin] Diarrhea potassium clavulanate AdvReac Nausea/Vom/ Verified 10/16/20 22:10 [From Augmentin] Diarrhea Social History Smoking Status: Current every day smoker ROS ROS ED Constitutional Constitutional ED: Denies chills or fever(s) ENT ENT ED: Denies rhinorrhea Cardiovascular Cardiovascular: Denies chest pain Respiratory/Chest Respiratory/Chest: Denies cough or dyspnea Gastrointestinal Gastrointestinal: Denies abdominal pain, diarrhea, nausea or vomiting Genitourinary Genitourinary ED: Denies dysuria or hematuria Musculoskeletal Musculoskeletal: Denies back pain Integumentary Reports abscess and rash Neurologic Neurologic: Denies paresthesias or weakness Psychiatric Psychiatric: Denies depression Endocrine Endocrinology: Denies fatigue Allergic/Immunologic Allergic/Immunologic ED: Denies urticaria EXAM Physical Exam Const Vital Signs: 10/16/20 22:08 Temperature 96.9 F L Temperature Source Temporal Pulse Rate 105 H Respiratory Rate 20 H Blood Pressure 160/110 H Blood Pressure Mean 126 Pulse Ox 97 Oxygen Delivery Method Room Air Positive well nourished and well developed General Appearance ED: well developed and NAD HEENT Reports moist mucous membranes Negative for trauma or tenderness Eyes EOMs intact bilaterally Neck no lymphadenopathy, supple and no JVD Chest Wall inspection of chest normal Resp normal respiratory effort and clear to auscultation bilaterally Cardio regular rate, regular rhythm, no murmurs and peripheral pulses 2+ throughout GI normal to inspection, nondistended, normoactive bowel sounds, non-tender and no masses Palpation: soft Back/Spine normal to inspection Extremity Extremity Narrative: Examination the patient's hands shows on the left hand a area of desquamation with a centralized healing eschar, minimal surrounding erythema. No subcutaneous emphysema or lymphangitic streaking. Normal range of motion of the finger minimal tenderness to palpation. Examination of the patient's right thumb shows approximately a 1 cm oval area of fluctuance. There is tenderness to palpation. There is no surrounding erythema. Normal range of motion of the finger. No evidence of splinter hemorrhages, Osler nodes, [place]ay lesions. Examination of the patient's left inner thigh shows a punctate area of induration with no fluctuance no surrounding cellulitis. General Extremety ED: Yes tenderness Neuro oriented x3 and no sensory deficits noted Sensorium / Orientation: alert Motor Exam: strength 5/5 throughout Psych mental status grossly normal Skin no rashes or lesions noted MDM MDM MDM Narrative Medical decision making narrative: Patient presented secondary to spontaneous abscesses they were starting on her fingers. She has no murmurs, she is not having any chest pain, she does not really seem to have any stigmata that this would be a presentation of a endocarditis, however the patient does have a history of intranasal opiate abuse and she potentially would be at a higher risk for bacteremia so I did perform lab work including blood cultures on the patient. I performed a incision and drainage of the patient's thumb abscess with a 21-gauge needle after cleansing the area with alcohol and I was able to express a moderate amount of purulent material. Patient tolerated this well. Patient's laboratory work-up demonstrates no leukocytosis she does have hyperglycemia at 292, no other evidence of electrolyte derangements acidosis or anion gap. This point I believe that the patient would benefit from treatment from doxycycline and Bactroban. She will be provided prescription for this. She was recommended to follow-up with primary care. Patient was discharged in stable condition. Lab Data Labs: Laboratory Results - last 24 hr 05/19/21 05/19/21 22:40 22:40 WBC 6.9 RBC 4.39 Hgb 12.4 Hct 37.7 MCV 85.9 MCH 28.2 MCHC 32.9 RDW Std Deviation 39.4 RDW Coeff of Jatinder 12.6 Plt Count 150 MPV 10.0 Immature Gran % (Auto) 0.900 Neut % (Auto) 48.5 Lymph % (Auto) 38.9 [place] % (Auto) 6.1 Eos % (Auto) 4.6 Baso % (Auto) 1.0 Absolute Neuts (auto) 3.3 Absolute Lymphs (auto) 2.68 Nucleated RBC % 0 Sodium 139 Potassium 3.4 L Chloride 107 Carbon Dioxide 25.0 Anion Gap 7 BUN 11 Creatinine 0.78 Estim Creat Clear Calc 75.07 Est GFR (MDRD) Af Amer 105 Est GFR (MDRD) Non-Af 86 BUN/Creatinine Ratio 14.1 Glucose 292 H Calcium 8.4 L Discharge Plan Triage Chief Complaint: Cellulitis ED Provider: Oscar Butcher Dx/Rx/DC Orders Clinical Impression: Abscess of right thumb, Opiate abuse, episodic Instructions: ED Abscess Incision And Drainage Prescriptions: New doxycycline hyclate 100 mg capsule 100 mg PO BID Qty: 20 RF: 0 mupirocin 2 % ointment 1 applic topical BID Qty: 15 RF: 0 No Action metformin 500 MG tablet 500 mg PO DAILY RF: 0 tizanidine [Zanaflex] 4 MG tablet 8 mg PO QHS RF: 0 albuterol sulfate [Ventolin HFA] 1 INHALER inhaler 2 puff inhalation Q4H PRN PRN (Reason: Asthma) RF: 0 Omeprazole [Prilosec] 40 MG capsule 40 mg PO DAILY RF: 0 buspirone 5 MG tablet 15 mg PO TID RF: 0 xklzymdkeo-ocvhvtdmhnnoc-qhmc 1 TABLET tablet 1 tab PO Q4H PRN PRN (Reason: MIGRAINES) RF: 0 gabapentin 300 MG capsule 600 mg PO TIDCM RF: 0 aripiprazole 5 MG tablet 5 mg PO DAILY RF: 0 clonazepam 1 MG tablet 1 mg PO DAILY PRN PRN (Reason: Anxiety) RF: 0 fluconazole 150 MG tablet 150 mg PO PRN PRN (Reason: yeast vaginitis) Qty: 1 RF: 1 paroxetine HCl 40 MG tablet 40 mg PO DAILY RF: 0 moxifloxacin 3 ML drops 3 ml OP Q8 Qty: 1 RF: 0 Primary Care Provider: Beto Barahona Referrals: Beto Barahona DO [Primary Care Provider] - 2 Days for wound check Disposition Disposition: Home, self care
[2020-10-17] MEDS: Doxycycline 100 MG CAPSULE PO (00:11)
== END 2020-10-17 00:13 | disposition home or self-care (01) ==
PROVIDERS: Emergency Provider Emergency Medicine; PCP Student in an Organized Health Care Education/Training Program
DX: L02.511 Cutaneous abscess of right hand (principal); F11.10 Opioid abuse, uncomplicated; F41.9 Anxiety disorder, unspecified; F31.9 Bipolar disorder, unspecified; E11.9 Type 2 diabetes mellitus without complications; M79.7 Fibromyalgia; K21.9 Gastro-esophageal reflux disease without esophagitis; F17.200 Nicotine dependence, unspecified, uncomplicated; Z79.899 Other long term (current) drug therapy; Z79.84 Long term (current) use of oral hypoglycemic drugs
CPT/HCPCS: 26010; 10060; 36415; 80048; 85025; 87040; 87070; 87077; 87186; 87205; 99284; A4216

== ENCOUNTER 2021-10-12 11:06 | Emergency (ER) | payer MEDICARE, MEDICAID, SELFPAY ==
[2021-10-12 11:07] VITALS: BP 146/114; PULSE 113; RESP 18; TEMP 36.4; O2SAT 99; BMI 32.9
--- NOTE | 2021-10-12 11:24 | RAD_ITS ---
STUDY: X-RAY - UNILATERAL RIBS ( LEFT ) WITH CHEST REASON FOR EXAM: Female, 41 years old. Pain TECHNIQUE - RIBS: 3 view(s) of the ribs. TECHNIQUE - CHEST: Single PA view of the chest. COMPARISON: Chest x-ray dated July 06, 2017 FINDINGS - RIBS: Normal visualized ribs without a demonstrated fracture. FINDINGS - CHEST: The lungs are clear and expanded. There is no demonstrated pleural abnormality. Normal size heart. Normal mediastinum and sd. Normal visualized pulmonary arteries. Normal visualized aortic arch and descending thoracic aorta. There are diffuse degenerative changes of the visualized thoracic spine. Normal visualized ribs, clavicles, and shoulders. There is no demonstrated abnormality of the visualized soft tissue structures of the upper abdomen. RAD/Ribs Uni Min 3V w/PA Chest IMPRESSION: RIBS: Normal x-ray examination of the ribs. CHEST: Degenerative changes, as described above. No demonstrated acute cardiopulmonary process. Electronically Signed: Hector Lopez MD at 12:59 EDT ,
--- NOTE | 2021-10-12 11:25 | EDS_ITS ---
HPI History of Present Illness Chief Complaint: Chest Other Narrative Narrative: Patient with past medical history of IBS, fibromyalgia, and recovery from opiate abuse, presents with left-sided chest wall pain for the last 3 days. Pain is worse with movement, sitting up, and deep breathing. She states that 3 days ago, a friend of hers hugged her very tightly, and she felt a pop, since then she has been having left anterior to lateral rib pain that is worse with movement. She is taking Tylenol with minimal relief. She states that this really all she can take for analgesia. She denies any fevers or chills. No cough. No nausea or vomiting. No diaphoresis. She presents with a chest wall pain that is worse with movement. [facility] Medical History Anxiety Bipolar disorder Depression Diabetes Fibromyalgia GERD (gastroesophageal reflux disease) Home Medications Omeprazole [Prilosec] 40 mg PO DAILY 12/14/13 [History Last Taken 01/09/15 0500] metformin 500 mg PO BID 12/14/13 [History Last Taken Unknown] tizanidine [Zanaflex] 8 mg PO QHS 12/14/13 [History Last Taken Unknown] buspirone 15 mg PO TID 07/03/14 [History Last Taken 07/17/14 07:45] gabapentin 600 mg PO TIDCM 01/02/15 [History Last Taken Unknown] aripiprazole 5 mg PO DAILY 02/12/16 [History Last Taken Unknown] clonazepam 1 mg PO DAILY PRN PRN 07/06/17 [History Last Taken Unknown] paroxetine HCl 40 mg PO DAILY 06/08/20 [History Last Taken Unknown] Allergy/AdvReac Type Severity Reaction Status Date / Time red (food color) Allergy Other Verified 10/12/21 11:09 sulfamethoxazole Allergy Rash Verified 10/12/21 11:09 [From Septra] trimethoprim [From Septra] Allergy Rash Verified 10/12/21 11:09 amoxicillin [Amoxicillin] AdvReac Nausea/Vom/ Verified 10/12/21 11:09 Diarrhea amoxicillin trihydrate AdvReac Nausea/Vom/ Verified 10/12/21 11:09 [From Augmentin] Diarrhea potassium clavulanate AdvReac Nausea/Vom/ Verified 10/12/21 11:09 [From Augmentin] Diarrhea Social History Smoking Status: Current every day smoker tobacco type: cigarettes ROS ROS ED ROS Narrative Constitutional: No fever, no chills. HEENT: No sore throat. No neck pain. No loss of vision. No rhinorrhea. Cardiovascular: Left anterior to lateral lower chest pain. Worse with movement and breathing. No palpitations. No pedal edema. Respiratory: No cough, no shortness of breath. Abdominal: No abdominal pain. No nausea. No vomiting. Genitourinary: No dysuria. No hematuria. Musculoskeletal: No myalgias. No arthralgias. Neurologic: No headaches. No dizziness. No lightheadedness. Skin: No rash. No change in color. Psychiatric: No depression. No anxiety. EXAM Physical Exam Narrative Exam Narrative: Afebrile. Vital signs noted. HEENT: Normocephalic. Atraumatic. PERRL, EOMI. Neck soft and supple. No point tenderness or step off. Cardiovascular: Regular rate and rhythm. No murmurs, rubs, or gallops appreciated. Positive tenderness to palpation left anterior to lateral ribs. No crepitance. Pain manifested with movement of torso and mildly with left arm. Respiratory: No tachypnea. Lungs clear to auscultation bilaterally. Gastrointestinal: Abdomen soft, nontender, with normoactive bowel sounds. No rebound or guarding. Neurological: Awake. Alert. Nonfocal, nonlateralizing. Skin: No rash. Normal color. No pallor. Musculoskeletal: No pedal edema. Full range of motion extremities. Const Vital Signs: 10/12/21 11:07 10/12/21 11:38 Temperature 97.6 F L Temperature Source Temporal Pulse Rate 113 H Respiratory Rate 18 Respiratory Pattern Normal Blood Pressure 146/114 H Blood Pressure Mean 124 Pulse Ox 99 Oxygen Delivery Method Room Air MDM MDM MDM Narrative Medical decision making narrative: I do feel this is more chest wall pain. X- rays were obtained of the left ribs with chest x-ray. Pulse ox is 99% on room air without evidence of hypoxia. Left rib x-rays interpreted by myself/ED physician shows no evidence of fracture, no pneumothorax. At this point in time, she will continue Tylenol and ice. I do not feel opiates are indicated. She was told to follow-up with her primary care provider in 1 week if her symptoms do not improve. She will apply ice to the affected area and take Tylenol. She states she has been doing this so was recommended that she continue this therapy. At this point in time, I feel she be discharged safely home with follow-up. Return instructions to the emergency department were reviewed. Disposition is discharged home in stable condition. Lab Data Attestation: I reviewed the patient's lab results. Radiography Diagnostic Testing: Clinical Impression(s) from Imaging Studies Ribs w/Chest X-Ray 10/12/21 11:24 IMPRESSION: RIBS: Normal x-ray examination of the ribs. CHEST: Degenerative changes, as described above. No demonstrated acute cardiopulmonary process. Electronically Signed: Hector Lopez MD at 12:59 EDT , Discharge Plan Triage Chief Complaint: Chest Other ED Provider: Mata Garcia Dx/Rx/DC Orders Clinical Impression: Chest wall pain, Rib contusion Instructions: ED Chest Pain, Uncertain Cause, ED Chest Wall Contusion, ED Contusion, Rib Prescriptions: No Action metformin 500 MG tablet 500 mg PO BID RF: 0 tizanidine [Zanaflex] 4 MG tablet 8 mg PO QHS RF: 0 Omeprazole [Prilosec] 40 MG capsule 40 mg PO DAILY RF: 0 buspirone 5 MG tablet 15 mg PO TID RF: 0 gabapentin 300 MG capsule 600 mg PO TIDCM RF: 0 aripiprazole 5 MG tablet 5 mg PO DAILY RF: 0 clonazepam 1 MG tablet 1 mg PO DAILY PRN PRN (Reason: Anxiety) RF: 0 paroxetine HCl 40 MG tablet 40 mg PO DAILY RF: 0 Primary Care Provider: Beto Barahona Referrals: Beto Barahona, [Primary Care Provider] - 1 Week if not improving Disposition Disposition: Home, Self Care
[2021-10-12 13:13] VITALS: RESP 16
== END 2021-10-12 13:13 | disposition home or self-care (01) ==
PROVIDERS: Emergency Provider Emergency Medicine; PCP Student in an Organized Health Care Education/Training Program; Visit Provider Emergency Medicine
DX: S20.219A Contusion of unspecified front wall of thorax, initial encounter (principal); E11.9 Type 2 diabetes mellitus without complications; F17.210 Nicotine dependence, cigarettes, uncomplicated; K21.9 Gastro-esophageal reflux disease without esophagitis; K58.9 Irritable bowel syndrome, unspecified; M79.7 Fibromyalgia; Z79.899 Other long term (current) drug therapy; Z79.84 Long term (current) use of oral hypoglycemic drugs; X58.XXXA Exposure to other specified factors, initial encounter; Y93.9 Activity, unspecified; Y99.9 Unspecified external cause status; Y92.9 Unspecified place or not applicable
CPT/HCPCS: 71101; 99282

== ENCOUNTER 2022-08-28 15:00 | Emergency (ER) | payer MEDICARE, MEDICAID, SELFPAY ==
[2022-08-28 15:02] VITALS: BP 147/125; PULSE 115; RESP 20; TEMP 35.7; O2SAT 99; BMI 41.8
--- NOTE | 2022-08-28 15:31 | EDS_ITS ---
HPI <LOUIS Street - Last Filed: 08/28/22 17:37> History of Present Illness Chief Complaint: Shortness of Breath Narrative Narrative: Patient presenting today for flulike symptoms that she has had over the past week. She states that she has had fatigue, stuffy nose, cough, fevers, chills, and sweats. She has felt short of breath on exertion but not at rest. She has not been eating much over this past week and has a decreased appetite. She also reports that she has been out of her metformin for the last few days. She denies any nausea, vomiting, diarrhea, and chest pain. PFS <LOUIS Street - Last Filed: 08/28/22 17:37> [facility] Medical History Anxiety Bipolar disorder Depression Diabetes Fibromyalgia GERD (gastroesophageal reflux disease) Home Medications Omeprazole [Prilosec] 40 mg PO DAILY 12/14/13 [History Last Taken 01/09/15 0500] metformin 500 mg tablet 500 mg PO BID 12/14/13 [History Last Taken Unknown] tizanidine 4 mg tablet (Zanaflex) 8 mg PO QHS 12/14/13 [History Last Taken Unknown] buspirone 5 mg tablet 15 mg PO TID 07/03/14 [History Last Taken 07/17/14 07:45] gabapentin 300 mg capsule 600 mg PO TIDCM 01/02/15 [History Last Taken Unknown] aripiprazole 5 mg tablet 5 mg PO DAILY 02/12/16 [History Last Taken Unknown] clonazepam 1 mg tablet 1 mg PO DAILY PRN PRN Anxiety 07/06/17 [History Last Taken Unknown] paroxetine HCl 40 mg tablet 40 mg PO DAILY 06/08/20 [History Last Taken Unknown] Allergy/AdvReac Type Severity Reaction Status Date / Time red (food color) Allergy Other Verified 10/12/21 11:09 sulfamethoxazole Allergy Rash Verified 10/12/21 11:09 [From Septra] trimethoprim [From Septra] Allergy Rash Verified 10/12/21 11:09 amoxicillin [Amoxicillin] AdvReac Nausea/Vom/ Verified 10/12/21 11:09 Diarrhea amoxicillin trihydrate AdvReac Nausea/Vom/ Verified 10/12/21 11:09 [From Augmentin] Diarrhea potassium clavulanate AdvReac Nausea/Vom/ Verified 10/12/21 11:09 [From Augmentin] Diarrhea Social History Smoking Status: Current every day smoker tobacco type: cigarettes ROS <LOUIS Street - Last Filed: 08/28/22 17:37> ROS ED Constitutional Constitutional ED: Reports chills, fever(s) and sweats ENT ENT ED: Reports rhinorrhea Cardiovascular Cardiovascular: Denies chest pain or palpitations Respiratory/Chest Respiratory/Chest: Reports cough and dyspnea on exertion Gastrointestinal Gastrointestinal: Denies abdominal pain, diarrhea, nausea or vomiting Genitourinary Genitourinary ED: Denies dysuria, hematuria or urinary urgency Musculoskeletal Musculoskeletal: Reports myalgias; Denies arthralgias, back pain or neck pain Integumentary Denies abscess, Abrasions or rash Neurologic Neurologic: Reports weakness; Denies dizziness Psychiatric Psychiatric: Denies anxiety, depression, suicidal ideation or suicidal thoughts EXAM <LOUIS Street - Last Filed: 08/28/22 17:37> Physical Exam Const Vital Signs: 08/28/22 15:02 08/28/22 15:55 08/28/22 15:57 Temperature 96.2 F L 98.4 F Temperature Source Temporal Oral Pulse Rate 115 H 98 Respiratory Rate 20 H 20 H Respiratory Effort Normal Respiratory Pattern Normal Blood Pressure 147/125 H 121/109 H Blood Pressure Mean 132 113 Pulse Ox 99 98 Oxygen Delivery Method Room Air Room Air Room Air 08/28/22 15:45 08/28/22 17:21 Temperature Temperature Source Pulse Rate 109 H 92 Respiratory Rate 12 Respiratory Effort Respiratory Pattern Blood Pressure 159/93 H 149/95 H Blood Pressure Mean 115 113 Pulse Ox 99 96 Oxygen Delivery Method Room Air Room Air Positive well nourished and well developed General Appearance ED: well developed HEENT Reports normocephalic, head/scalp atraumatic, TM's clear and dry mucous membranes Tympanic Membrane ED: Yes TM's clear Mouth ED: Yes moist mucous membranes normal and Yes dry mucous membranes Mouth: dry mucous membranes Eyes PERRL and EOMs intact bilaterally Neck full ROM and supple Chest Wall inspection of chest normal Resp normal respiratory effort and clear to auscultation bilaterally Cardio regular rate and regular rhythm GI soft to palpation, non-tender, non-distended and no masses Back/Spine normal ROM and normal to inspection Extremity normal to inspection and full ROM Neuro oriented x3, CN's II-XII intact bilaterally, moves all extremities, no focal motor deficits and no sensory deficits noted Sensorium / Orientation: awake and alert Psych mental status grossly normal and thought process normal Skin no rashes or lesions noted and no wounds <Dr. Lynne Trinidad MD - Last Filed: 08/28/22 20:21> Physical Exam Const Vital Signs: 08/28/22 15:02 08/28/22 15:55 08/28/22 15:57 Temperature 96.2 F L 98.4 F Temperature Source Temporal Oral Pulse Rate 115 H 98 Respiratory Rate 20 H 20 H Respiratory Effort Normal Respiratory Pattern Normal Blood Pressure 147/125 H 121/109 H Blood Pressure Mean 132 113 Pulse Ox 99 98 Oxygen Delivery Method Room Air Room Air Room Air 08/28/22 15:45 08/28/22 17:21 Temperature Temperature Source Pulse Rate 109 H 92 Respiratory Rate 12 Respiratory Effort Respiratory Pattern Blood Pressure 159/93 H 149/95 H Blood Pressure Mean 115 113 Pulse Ox 99 96 Oxygen Delivery Method Room Air Room Air MDM <LOUIS Street - Last Filed: 08/28/22 17:37> [facility] Narrative Medical decision making narrative: Patient presenting with flulike symptoms that she has had over the past week. She does clinically looks dry, she is slightly tachycardic in 150 bpm, I have given her IV fluids. She is afebrile. She is 97% on room air and does not have any shortness of breath at rest. Rapid COVID and flu obtained. Labs have been obtained to rule out any electrolyte abnormality, anemia, ALLA because patient has not been eating over the past several days and has been weak. Patient sodium is 132, she has been given fluids. Potassium is 3.3. After the fluids patient's heart rate went down to 92 bpm, she is slightly hypertensive at 149/95 and states she is not on any medication for this. I have encouraged her to keep an eye on her blood pressure and to follow-up with her PCP on this. Patient's glucose is 227 as she has been out of her metformin for the past week. She states that she does have a refill at the pharmacy that she will be picking up when she is discharged from here. She has no anion gap. COVID and flu both came back negative. I suspect that this is a viral illness. On reexamination she is feeling little bit better after the fluids, she has been given supportive care measures. She will be discharged home in stable condition and is comforta ble with plan. Chest x-ray does not show any pneumonia or cardiopulmonary abnormality. Lab Data Attestation: I reviewed the patient's lab results. Lab results narrative: RBC 5.83, hemoglobin 15.9, hematocrit 47.9, sodium 132, potassium 3.3, glucose 221 Labs: Laboratory Results - last 24 hr 08/28/22 08/28/22 08/28/22 15:43 15:43 15:49 WBC 10.9 RBC 5.83 H Hgb 15.9 H Hct 47.9 H MCV 82.2 MCH 27.3 MCHC 33.2 RDW Std Deviation 39.3 RDW Coeff of Jatinder 13.3 Plt Count 195 MPV 9.9 Immature Gran % (Auto) 0.800 Neut % (Auto) 67.8 Lymph % (Auto) 22.3 [place] % (Auto) 5.9 Eos % (Auto) 2.6 Baso % (Auto) 0.6 Absolute Neuts (auto) 7.4 Absolute Lymphs (auto) 2.43 Nucleated RBC % 0 Sodium 132 L Potassium 3.3 L Chloride 99 Carbon Dioxide 22.0 Anion Gap 11 BUN 17 Creatinine 0.68 Estim Creat Clear Calc 84.37 Est GFR (MDRD) Af Amer 120 Est GFR (MDRD) Non-Af 100 BUN/Creatinine Ratio 24.9 H Glucose 221 H Calcium 9.5 POC Glucose 227 H Radiography Chest X-Ray - ED: Read by ED Physician and Read by Radiologist Diagnostic Testing: Clinical Impression(s) from Imaging Studies Chest X-Ray 08/28/22 16:05 IMPRESSION: No radiographic evidence of acute cardiopulmonary disease. Electronically Signed: Bakari Daniels MD at 16:35 EDT , <Dr. Lynne Trinidad MD - Last Filed: 08/28/22 20:21> [facility] Lab Data Labs: Laboratory Results - last 24 hr 08/28/22 08/28/22 08/28/22 15:43 15:43 15:49 WBC 10.9 RBC 5.83 H Hgb 15.9 H Hct 47.9 H MCV 82.2 MCH 27.3 MCHC 33.2 RDW Std Deviation 39.3 RDW Coeff of Jatinder 13.3 Plt Count 195 MPV 9.9 Immature Gran % (Auto) 0.800 Neut % (Auto) 67.8 Lymph % (Auto) 22.3 [place] % (Auto) 5.9 Eos % (Auto) 2.6 Baso % (Auto) 0.6 Absolute Neuts (auto) 7.4 Absolute Lymphs (auto) 2.43 Nucleated RBC % 0 Sodium 132 L Potassium 3.3 L Chloride 99 Carbon Dioxide 22.0 Anion Gap 11 BUN 17 Creatinine 0.68 Estim Creat Clear Calc 84.37 Est GFR (MDRD) Af Amer 120 Est GFR (MDRD) Non-Af 100 BUN/Creatinine Ratio 24.9 H Glucose 221 H Calcium 9.5 POC Glucose 227 H Radiography Diagnostic Testing: Clinical Impression(s) from Imaging Studies Chest X-Ray 08/28/22 16:05 IMPRESSION: No radiographic evidence of acute cardiopulmonary disease. Electronically Signed: Bakari Daniels MD at 16:35 EDT , Treatment and Re-Evaluation :: Patient seen and evaluated with ASHKAN. I personally interviewed and examined the patient. I was involved in all aspects of patient's orders, interpretation of results, and treatment. Patient presents with flulike symptoms for the past 1 week. Family at bedside states she is been sleeping a lot. She has had somewhat decreased p.o. intake. She has had chills but did not measure her temperature at home. Patient lying in bed no acute distress. Nontoxic-appearing. Head and neck examination unremarkable. Heart is slightly tachycardic and regular. Lung sounds are clear with good air movement. Abdomen is soft and nontender. Extremity examination reveals no acute findings. Neuro exam is appropriate for age. Lab work obtained. CBC reveals normal white count at 10.9 with hemoglobin slightly concentrated at 15.9. Chemistry studies reveal slightly low potassium at 3.3 and sodium at 132. Glucose is 221. Patient has been given a liter IV fluids here. Her swab for COVID and influenza is negative. Her chest x-ray reveals no evidence of focal infiltrate per my review as well as radiology. Patient will continue supportive care at home. I do believe she has a viral illness and will simply need to run its course. Return instructions have been provided. 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 Disposition Disposition: Home, Self Care Discharge Date/Time: 08/28/22 17:26
[2022-08-28 15:45] VITALS: BP 159/93; PULSE 109; O2SAT 99
[2022-08-28] MEDS: 0.9% Normal Saline 1,000 ML 999 ML IV (15:53)
[2022-08-28 15:55] VITALS: O2SAT 98
[2022-08-28 15:57] VITALS: BP 121/109; PULSE 98; RESP 20; TEMP 36.9; O2SAT 98
[2022-08-28 16:03] LABS: Absolute Lymphocyte Count 2.43 X10^3/uL (0.83-4.51); Absolute Neutrophil Count 7.4 X10^3/uL (2.0-7.7); Basophil# 0.07 X10^3/uL; Basophil% 0.6 % (0-1); Eosinophil# 0.28 X10^3/uL; Eosinophils% 2.6 % (0-5); Hematocrit 47.9 % (37-47); Hemoglobin 15.9 g/dL (12.0-15.0); Lymphocyte # 2.43 X10^3/ul (0.83-4.51); Lymphocyte % 22.3 % (19-41); Mean Corp Hgb Conc 33.2 g/dL (32-36); Mean Corpuscular Hgb 27.3 pg (27.0-32.0); Mean Corpuscular Volume 82.2 fL (81-99); Mean Platelet Vol. 9.9 fl (6.2-12.0); Monocyte# 0.64 X10^3/uL; Monocyte% 5.9 % (0-10); NRBC Flagged by Analyzer 0 % (0-5); Neutrophil # 7.39 X10^3/uL (2.7-7.7); Neutrophil % 67.8 % (47-70); Platelet Count 195 K/mm3 (150-450); RBC Distribution Width CV 13.3 % (11.6-14.6); RBC Distribution Width SD 39.3 fl (35.1-43.9); Red Blood Count 5.83 M/mm3 (4.2-5.4); White Blood Count 10.9 K/mm3 (4.4-11.0)
--- NOTE | 2022-08-28 16:05 | RAD_ITS ---
EXAM: XR CHEST, 2 VIEWS CLINICAL INDICATION: SOB TECHNIQUE: Frontal and lateral views of the chest. This report was created using [employer] report generation technology. COMPARISON: 10/12/2021 FINDINGS: LUNGS AND PLEURAL SPACES: Unremarkable. No consolidation or edema. No pneumothorax. No effusion. HEART: Unremarkable. Cardiac silhouette not enlarged. MEDIASTINUM: Central airways and mediastinal contour are unremarkable. BONES/JOINTS: Unremarkable. SOFT TISSUES: Unremarkable. RAD/Chest PA and Lateral IMPRESSION: No radiographic evidence of acute cardiopulmonary disease. Electronically Signed: Bakari Daniels MD at 16:35 EDT ,
[2022-08-28 16:11] LABS: Bedside Glucose 227 mg/dL (74-106)
[2022-08-28 16:51] LABS: Anion Gap 11 (5-15); BUN 17 mg/dL (7-18); BUN/Creat Ratio 24.9 RATIO (10-20); Calcium,Total 9.5 mg/dL (8.5-10.1); Chloride 99 mmol/L (98-107); Creatinine, Serum 0.68 mg/dL (0.55-1.02); EST Glomerular Filtration Rate 100 mL/min (>60); Est Glom Filt Rate - Afr Amer 120 mL/min (>60); Estimated Creatinine Clearance 84.37 ml/min; Glucose 221 mg/dL (74-106); Potassium 3.3 mmol/L (3.5-5.1); Sodium Level 132 mmol/L (136-145)
[2022-08-28 17:21] VITALS: BP 149/95; PULSE 92; RESP 12; O2SAT 96
== END 2022-08-28 17:26 | disposition home or self-care (01) ==
PROVIDERS: Physician Assistant; Emergency Provider Emergency Medicine; PCP Student in an Organized Health Care Education/Training Program; Visit Provider Emergency Medicine
DX: E11.65 Type 2 diabetes mellitus with hyperglycemia (principal); Z79.84 Long term (current) use of oral hypoglycemic drugs; Z20.822 Contact with and (suspected) exposure to COVID-19; R06.02 Shortness of breath; B34.9 Viral infection, unspecified; F17.210 Nicotine dependence, cigarettes, uncomplicated; Z91.14 Patient's other noncompliance with medication regimen
CPT/HCPCS: 71046; 80048; 82962; 85025; 87428; 96360; 96361; 99283; J7030

== ENCOUNTER 2022-12-11 18:47 | Emergency (ER) | payer MEDICARE, MEDICAID, SELFPAY ==
[2022-12-11 18:49] VITALS: BP 221/207; PULSE 127; RESP 16; TEMP 36.6; O2SAT 98; BMI 40.4
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
[2022-12-11 19:35] VITALS: BP 159/88
[2022-12-11] MEDS: 0.9% Normal Saline 1,000 ML 999 ML IV (20:09)
[2022-12-11 20:15] LABS: Absolute Lymphocyte Count 2.36 X10^3/uL (0.83-4.51); Basophil# 0.05 X10^3/uL; Basophil% 0.5 % (0-1); Eosinophil# 0.44 X10^3/uL; Eosinophils% 4.6 % (0-5); Hematocrit 41.6 % (37-47); Hemoglobin 13.4 g/dL (12.0-15.0); Lymphocyte # 2.36 X10^3/ul (0.83-4.51); Lymphocyte % 24.7 % (19-41); Mean Corp Hgb Conc 32.2 g/dL (32-36); Mean Corpuscular Hgb 27.3 pg (27.0-32.0); Mean Corpuscular Volume 84.7 fL (81-99); Mean Platelet Vol. 9.3 fl (6.2-12.0); Monocyte% 6.3 % (0-10); NRBC Flagged by Analyzer 0 % (0-5); Neutrophil # 6.03 X10^3/uL (2.7-7.7); Neutrophil % 63.1 % (47-70); Platelet Count 164 K/mm3 (150-450); RBC Distribution Width CV 13.1 % (11.6-14.6); RBC Distribution Width SD 40.2 fl (35.1-43.9); Red Blood Count 4.91 M/mm3 (4.2-5.4); White Blood Count 9.6 K/mm3 (4.4-11.0)
[2022-12-11 20:27] LABS: Anion Gap 5 (5-15); BUN 13 mg/dL (7-18); BUN/Creat Ratio 16.3 RATIO (10-20); Calcium,Total 9.1 mg/dL (8.5-10.1); Chloride 106 mmol/L (98-107); EST Glomerular Filtration Rate 83 mL/min (>60); Est Glom Filt Rate - Afr Amer 101 mL/min (>60); Estimated Creatinine Clearance 71.71 ml/min; Glucose 147 mg/dL (74-106); Potassium 3.4 mmol/L (3.5-5.1); Sodium Level 140 mmol/L (136-145)
[2022-12-11] MEDS: Potassium Chloride Oral Tablet 20 MEQ PO (20:58)
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
[2022-12-11 21:33] VITALS: BP 155/98; PULSE 78; RESP 20; O2SAT 97
== END 2022-12-11 21:38 | disposition home or self-care (01) ==
PROVIDERS: Physician Assistant; Emergency Provider Student in an Organized Health Care Education/Training Program; PCP Student in an Organized Health Care Education/Training Program; Visit Provider Student in an Organized Health Care Education/Training Program
DX: S06.0X0A Concussion without loss of consciousness, initial encounter (principal); E11.9 Type 2 diabetes mellitus without complications; F17.210 Nicotine dependence, cigarettes, uncomplicated; E87.6 Hypokalemia; Z59.00 Homelessness unspecified; Y00.XXXA Assault by blunt object, initial encounter
CPT/HCPCS: 80048; 85025; 96360; 99283; J7030; A4216

== ENCOUNTER 2022-12-21 09:55 | Emergency (ER) | payer MEDICARE, MEDICAID, SELFPAY ==
[2022-12-21 09:56] VITALS: BP 188/115; PULSE 89; RESP 18; TEMP 36.2; O2SAT 99; BMI 38.4
--- NOTE | 2022-12-21 10:08 | ED.RN ---
Pt. behavior is very erratic in triage, upset that the charging station is broken. Pt. called this RN a bitch in triage.
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
--- NOTE | 2022-12-21 10:14 | ED.RN ---
LWBS AT 1010 AM
--- NOTE | 2022-12-21 10:38 | ED.RN ---
Addendum entered by Chio Card 12/21/22 10:40: PT. STILL BACK AND FORTH ON IF SHE WANTS TO BE SEEN BY A DOCTOR OR NOT. PT. WILL SIT IN WAITING ROOM UNTIL SHE CAN DECIDE IF SHE WANTS TO BE SEEN OR NOT. Original Note: PT. BROUGHT BACK IN BY ISMAEL RANDHAWA HAZARDOUS SUBSTANCES SCIENTIST OUT TO SEE PT. TO SEE IF SHE CAN ASSIT PT. IN FINDING A RIDE BACK HOME TO [place]. PT. CURRENTLY SITTING IN WAITING ROOM CHARGING HER PHONE.
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
[2022-12-21] MEDS: LORazepam 1 MG Tablet PO (12:18)
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
--- NOTE | 2022-12-21 12:22 | ED.RN ---
rn at bedside to administer PO ativan, pt requesting water, rn left room to get water, pt is walking out stating she wants to wait for her friend Paulina on the bench. RN asked if she wanted to wait for d/c paperwork and patient states no.
== END 2022-12-21 12:40 | disposition left against medical advice (07) ==
LOC: ED 12:31
PROVIDERS: Emergency Provider Emergency Medicine; PCP Student in an Organized Health Care Education/Training Program; Visit Provider Emergency Medicine
DX: F15.10 Other stimulant abuse, uncomplicated (principal); F31.9 Bipolar disorder, unspecified; E11.9 Type 2 diabetes mellitus without complications; R53.1 Weakness; F17.210 Nicotine dependence, cigarettes, uncomplicated; Z59.00 Homelessness unspecified; R51.9 Headache, unspecified; Z76.0 Encounter for issue of repeat prescription
CPT/HCPCS: 99281; 99283

== ENCOUNTER 2023-01-24 11:14 | Emergency (ER) | payer MEDICARE, MEDICAID, SELFPAY ==
[2023-01-24 11:16] VITALS: BP 203/129; PULSE 100; RESP 18; TEMP 36; O2SAT 100; BMI 87.4
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
[2023-01-24 11:43] VITALS: BP 176/100
[2023-01-24 11:54] LABS: Bacteria 0 SEEN /hpf (None Seen); Mucous, Urine 0 SEEN /hpf (<or=2+); Red Blood Cells-Urine 0 SEEN /hpf (0-5)
[2023-01-24 12:00] LABS: Glucose, Dipstick 1000 mg/dl (Normal); Ketone-Dipstick 5 mg/dl (Negative); Leukocyte Esterase-Dipstick 25 /ul (Negative); Nitrite-Dipstick Negative (Negative); Occult Blood-Urine 10 /ul (Negative); Protein-Dipstick 15 mg/dl (Negative); Specific Gravity, Urine 1.015 (1.002-1.030); Urine Bilirubin Dipstick Negative (Negative); Urine Urobilinogen Normal (Normal)
[2023-01-24 12:08] VITALS: BP 176/100
[2023-01-24 12:08] LABS: Color, Urine Yellow (Yellow); Internal QC Validated? YES +Cl - CLEAR BKGD; Pregnancy, Urine Negative Negative; Squamous Epithelial Cells - UA 0-5 SEEN /hpf (5-10); Urine Clarity Clear (Clear); White Blood Cells 10-25 SEEN /hpf (0-5)
[2023-01-24] MEDS: Acetaminophen 500 MG Tablet 1000 MG PO (12:15)
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
--- NOTE | 2023-01-24 12:22 | ED.RN ---
PT REQUESTS RESOURCES REFERRING TO BEING DENIED NECESSITIES OF LIVING AND NOT FEELING SAFE WHERE SHE LIVES. PT EDUCATED THAT SOCIAL WORK NOT AVAILABLE ON WEDNESDAY. [facility] CALLED BY Matty WOODS RN (CHARGE NURSE) TO COME SPEAK WITH PT AND OFFER RESOURCES. PT EDUCATED WAITING ON [facility] FOR RESOURCES.
--- NOTE | 2023-01-24 13:17 | ED.RN ---
PT'S FAMILY MEMBER COMES OUT AND TELLS STAFF THAT PT WENT OUTSIDE TO SMOKE AND WOULD BE BACK IN TO TALK TO COUNSELOR REGARDING RESOURCES. PTS FAMILY MEMBER QUESTIONING LAB RESULTS. PTS RN SRINIVAS UPDATING FAMILY REGARDING NEGATIVE LAB RESULTS. THIS RN GOES OUT TO LET PT KNOW THAT SHE IS UNABLE TO GO OUTSIDE TO SMOKE WHILE ACTIVELY RECEIVING CARE. THIS RN TELLS PT THAT THIS IS A TOBACCO FREE CAMPUS AND SHE WILL NOT BE ABLE TO SMOKE ON HOSPITAL PROPERTY. PT STATES THAT [facility] HAS ALREADY SPOKE WITH HER AND WAS SHOWING HER THE PROPER PLACE TO SMOKE. THIS RN TELLS PT THAT COUNSELOR WAS AT THE BEDSIDE AND IF SHE WOULD LIKE TO RECEIVE HER RESOURCES SHE NEEDS TO COME BACK INTO THE ROOM TO TALK TO HER, OTHERWISE SHE IS FREE TO LEAVE. PT RETURNS TO ROOM FOR RESOURCES AND PUTS OUT CIGARETTE
[2023-01-24 13:45] VITALS: BP 178/99; PULSE 90; RESP 19; O2SAT 98
--- NOTE | 2023-01-24 13:56 | ED.RN ---
PT LEFT PRIOR TO RECEIVING DISCHARGE PAPERWORK AND SAFETY PLAN FROM COUNSELOR. PER COUNSELOR, RESOURCES LEFT WITH PT MOTHER. COUNSELOR LEFT SAFETY PLAN AT [facility] ALONG WITH DISCHARGE PAPERWORK IN CASE PT RETURNS FOR IT.
== END 2023-01-24 13:57 | disposition home or self-care (01) ==
PROVIDERS: Nurse Practitioner; Emergency Provider Emergency Medicine; PCP Student in an Organized Health Care Education/Training Program; Visit Provider Emergency Medicine
DX: S20.219A Contusion of unspecified front wall of thorax, initial encounter (principal); E11.9 Type 2 diabetes mellitus without complications; F17.210 Nicotine dependence, cigarettes, uncomplicated; B34.9 Viral infection, unspecified; Z59.00 Homelessness unspecified; R35.0 Frequency of micturition; R82.81 Pyuria; X58.XXXA Exposure to other specified factors, initial encounter
CPT/HCPCS: 71101; 81001; 81025; 87077; 87086; 87088; 87186; 87428; 99283